=== PATIENT | female | born 2000 | race African-American/Black ===

== ENCOUNTER 2021-07-26 02:43 | Emergency (ER) | payer SELFPAY ==
[~2021-07-26] VITALS: Ht 172.7 cm; Wt 72.0 kg
[2021-07-26] MEDS ORDERED: CLEOCIN300 MG PO (03:12)
[2021-07-26] MEDS ORDERED: ULTRAM50 MG PO (03:12)
[2021-07-26 03:20] VITALS: BP 97/57
== END 2021-07-26 03:37 | disposition home or self-care (01) | DRG 159 ==
LOC: ED 02:43
DX: K04.7 Periapical abscess without sinus (principal)